=== PATIENT | male | born 1945 | race Caucasian/White ===

== ENCOUNTER → 2018-10-16 13:37 | Outpatient (CLI) | payer OTHER | END | disposition home or self-care (01) | LOC: D.HCCARDIO 13:37 | PROVIDERS: ATTEND Internal Medicine Cardiovascular Disease | DX: R00.2 Palpitations (principal) ==

== ENCOUNTER → 2018-10-21 11:46 | Outpatient (CLI) | payer OTHER | END | disposition home or self-care (01) | LOC: D.HCCARDIO 10-17 11:30 | PROVIDERS: ATTEND Internal Medicine Cardiovascular Disease | DX: I10 Essential (primary) hypertension (principal) ==

== ENCOUNTER 2020-08-01 09:51 | Observation (INO) | payer OTHER ==
[2020-08-01] VITALS (7 sets, daily range): BP systolic 121–163; BP diastolic 68–88; Ht 172.7 cm; Wt 78.6 kg
[~2020-08-01] VITALS: Ht 172.7 cm; Wt 78.6 kg
[2020-08-01 10:23] LABS: BASOPHILS 0.7 % (0-2); EOSINOPHILS 2.2 % (0-7); HEMATOCRIT 43.5 % (42.0-54.0); HEMOGLOBIN 14.5 g/dL (13.5-17.5); LYMPHOCYTES 40.6 % (15-50); MCH 29.4 pg (26.0-34.0); MCHC 33.5 g/dL (31.0-37.0); MCV 87.9 fL (80.0-100.0); MEAN PLATELET VOLUME 7.8 fL (7.4-10.4); MONOCYTES 6.9 % (2-11); NEUTROPHILS 49.6 % (40-80); PLATELET COUNT 261 10x3/uL (130-400); RBC 4.95 10x6/uL (4.20-6.10); RDW 13.5 % (11.5-14.5); WBC 8.7 10x3/uL (4.8-10.8)
[2020-08-01 10:30] LABS: ANION GAP 12.3 mmol/L (8-16); CALCIUM 8.8 mg/dL (8.5-10.1); CARBON DIOXIDE 27.7 mmol/L (21.0-32.0); CREATININE - SERUM 1.2 mg/dL (0.6-1.3)
[2020-08-01 10:32] LABS: APTT 24.4 SECONDS (22.8-39.4); INR 0.98 (0.85-1.17)
[2020-08-01 10:34] LABS: D-DIMER-QUANTITATIVE 0.33 ug/mLFEU (0.20-0.54)
[2020-08-01 10:35] LABS: ALBUMIN 3.5 g/dL (3.4-5.0); BILIRUBIN - TOTAL 0.33 mg/dL (0.2-1.3); PROTEIN - SERUM 7.4 g/dL (6.4-8.2)
--- NOTE | 2020-08-01 11:04 | NUR ---
ANTI-VENOM ADMIN. INITIATED AT 50 ML/HR. WILL MONITOR.
--- NOTE | 2020-08-01 11:15 | NUR ---
PT. BIRDIE. ANTI-VENOM WITHOUT ANY S/SX OF A RXN. INCREASED RATE TO 150ML/HR. WILL CONT. TO MONITOR.
--- NOTE | 2020-08-01 11:21 | NUR ---
BIRDIE. ANTI-VENOM INFUSION WITHOUT ANY S/SX OF A RXN. INCREASED RATE TO 290 ML/HR. WILL CONT. TO MONITOR.
--- NOTE | 2020-08-01 13:09 | NUR ---
INITIATED 2ND UNIT OF ANTI-VENOM AT 50 ML/HR. WILL MONITOR.
[2020-08-01 16:06] LABS: APTT 25.3 SECONDS (22.8-39.4); INR 0.99 (0.85-1.17); PROTIME 12.1 SECONDS (11.6-15.0)
--- NOTE | 2020-08-01 19:11 | NUR ---
PATIENT REPORT RECIEVED FROM [facility] AND CARE TRANSFERRED TO [facility]
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
[2020-08-01 23:18] LABS: APTT 25.4 SECONDS (22.8-39.4); INR 1.03 (0.85-1.17); PROTIME 12.5 SECONDS (11.6-15.0)
[2020-08-02] VITALS: BP 124/63
--- NOTE | 2020-08-02 00:04 | NUR ---
PT IS RESTING QUIETLY. NO C/O AT THIS TIME
[2020-08-02 01:00] VITALS: BP 110/61
[2020-08-02 02:00] VITALS: BP 113/62
--- NOTE | 2020-08-02 02:15 | NUR ---
CROFAB STARTED IN 250 ML OF NS. THIS WAS STARTED AT 30 ML/HR PER PROTOCOL (25-50 ML) AFTER 15 MIN THE RATE WAS INCREASED TO 250 ML. PT NEVER HAD ANY S/S OF A REACTION.
--- NOTE | 2020-08-02 03:45 | NUR ---
INFUSION COMPLETED. NS AT 125/HR WAS RESTARTED. PT HAS BEEN AWAKE EVERY TIME I'VE CHECKED IN ON HIM. HE DENIES ANY PAIN AT THE BITE SITES. HIS RIGHT HAND AND FINGERS ARE STILL VERY RED AND SWOLLEN. THE SWELLING HAS NOT GONE ANY FARTHER UP ARM THAN LAST MARKED. I ASKED HIM TO TRY TO GET SOME REST.
--- NOTE | 2020-08-02 04:30 | NUR ---
PT RESTING QUIETLY WITH HIS EYES CLOSED. NO C/O OF PAIN. NO NEEDS.
[2020-08-02 04:33] LABS: BASOPHILS 0.5 % (0-2); EOSINOPHILS 2.4 % (0-7); HEMATOCRIT 37.8 % (42.0-54.0); HEMOGLOBIN 12.8 g/dL (13.5-17.5); LYMPHOCYTES 28.8 % (15-50); MCH 29.6 pg (26.0-34.0); MCHC 33.7 g/dL (31.0-37.0); MCV 87.6 fL (80.0-100.0); MEAN PLATELET VOLUME 8.3 fL (7.4-10.4); MONOCYTES 10.3 % (2-11); PLATELET COUNT 224 10x3/uL (130-400); RBC 4.32 10x6/uL (4.20-6.10); RDW 13.2 % (11.5-14.5); WBC 8.5 10x3/uL (4.8-10.8)
[2020-08-02 04:51] LABS: ALKALINE PHOSPHATASE 95 U/L (30-120); BILIRUBIN - TOTAL 0.31 mg/dL (0.2-1.3); CALC OSMOLALITY 281 mosm/kg (275-300); CALCIUM 7.4 mg/dL (8.5-10.1); CARBON DIOXIDE 27.6 mmol/L (21.0-32.0); CHLORIDE - SERUM 108 mmol/L (98-107); GLUCOSE 117 mg/dL (74-106); POTASSIUM - SERUM 3.7 mmol/L (3.5-5.1); PROTEIN - SERUM 5.7 g/dL (6.4-8.2); SODIUM 140 mmol/L (136-145); UREA NITROGEN 17 mg/dL (7-18); eGFR NON AFRICAN AMERICAN 77 mL/min (90-120)
[2020-08-02 04:55] LABS: APTT 23.6 SECONDS (22.8-39.4); INR 1.03 (0.85-1.17); PROTIME 12.5 SECONDS (11.6-15.0)
[2020-08-02 05:00] VITALS: BP 110/67
[2020-08-02 05:12] LABS: ALBUMIN 2.6 g/dL (3.4-5.0); ALT (SGPT) 20 U/L (10-68)
[2020-08-02 06:00] VITALS: BP 116/73
--- NOTE | 2020-08-02 06:16 | NUR ---
PT RESTING IN HIS BED WITH HIS EYES CLOSED. NO NEW C/O
== END 2020-08-02 12:51 | disposition home or self-care (01) ==
LOC: D.ER 09:51 → D.ICU 21:12 → OBSVTIME 21:14 → D.ICU 08-02 12:51
PROVIDERS: Emergency Medicine; ADMIT Surgery; ATTEND Surgery
DX: T63.091A Toxic effect of venom of other snake, accidental (unintentional), initial encounter (principal)